=== PATIENT | male | born 1980 | race Caucasian/White ===

== ENCOUNTER → 2020-06-24 08:41 | Outpatient (CLI) | payer OTHER ==
[~2020-06-24] VITALS: Ht 167.6 cm; Wt 76.2 kg
[2020-06-24 10:21] VITALS: Ht 167.6 cm; Wt 76.2 kg
== END | disposition home or self-care (01) ==
LOC: D.FANS 08:41
PROVIDERS: ATTEND Family Medicine
DX: R42 Dizziness and giddiness (principal)